=== PATIENT | male | born 1990 | race African-American/Black ===

== ENCOUNTER 2016-12-18 16:37 | Emergency (ER) | payer SELFPAY ==
[~2016-12-18] VITALS: Ht 175.3 cm; Wt 85.7 kg
[2016-12-18 16:42] VITALS: BP 111/68
[2016-12-18] MEDS ORDERED: Fluorescein Strips RIGHT EYE ONE (17:00)
[2016-12-18] MEDS ORDERED: Proparacaine 0.5% Opth Soln 15ml RIGHT EYE ONE (17:00)
[2016-12-18] MEDS ORDERED: Morgan Lens TOPIC ONE (17:45)
[2016-12-18] MEDS ORDERED: NS Irrig 1000ml 1,000 ML IRRIG ONE (17:45)
[2016-12-18] MEDS ORDERED: ERYTHROMYCIN3.5 GM RIGHT EYE (18:27)
[2016-12-18] MEDS ORDERED: IBUPROFEN600 MG ORAL (18:27)
[2016-12-18 19:45] VITALS: BP 155/75
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
== END 2016-12-18 19:45 | disposition home or self-care (01) ==
LOC: EMR 17:10
DX: S00.211A Abrasion of right eyelid and periocular area, initial encounter (principal); V43.52XA Car driver injured in collision with other type car in traffic accident, initial encounter; Y93.9 Activity, unspecified; Y92.410 Unspecified street and highway as the place of occurrence of the external cause
CPT/HCPCS: 96374

== ENCOUNTER 2016-12-20 18:00 | Emergency (ER) | payer SELFPAY ==
[~2016-12-20] VITALS: Ht 175.3 cm; Wt 85.7 kg
[~2016-12-20 18:00] MED LIST: ERYTHROMYCIN3.5 GM RIGHT EYE; IBUPROFEN600 MG ORAL
[2016-12-20] MEDS ORDERED: Proparacaine 0.5% Opth Soln 15ml BOTH EYES ONE (18:45)
[2016-12-20] MEDS ORDERED: traMADol 50mg tab ORAL ONE (18:45)
[2016-12-20 18:55] VITALS: BP 113/60
[2016-12-20] MEDS ORDERED: Tetracaine 0.5% Opth Soln RIGHT EYE ONE (19:00)
[2016-12-20] MEDS ORDERED: TRAMADOL HCL50 MG ORAL (19:11)
[2016-12-20 19:26] VITALS: BP 113/60
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
== END 2016-12-20 19:28 | disposition home or self-care (01) ==
LOC: EMR 18:31
DX: S00.11XA Contusion of right eyelid and periocular area, initial encounter (principal); V49.9XXA Car occupant (driver) (passenger) injured in unspecified traffic accident, initial encounter; Y93.9 Activity, unspecified; Y99.9 Unspecified external cause status; V89.2XXD Person injured in unspecified motor-vehicle accident, traffic, subsequent encounter; H57.11 Ocular pain, right eye
CPT/HCPCS: 99283

== ENCOUNTER 2016-12-25 02:46 | Emergency (ER) | payer SELFPAY ==
[~2016-12-25] VITALS: Ht 175.3 cm; Wt 85.7 kg
[~2016-12-25 02:46] MED LIST changes: +TRAMADOL HCL50 MG ORAL
[2016-12-25 03:11] VITALS: BP 125/58
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
[2016-12-25] MEDS ORDERED: Tetracaine 0.5% Opth Soln RIGHT EYE ONE (03:30)
[2016-12-25] MEDS ORDERED: Oxycodone/Acetaminophen 5-325 ORAL ONE (03:30)
[2016-12-25] MEDS ORDERED: TRAMADOL HCL50 MG ORAL (03:34)
[2016-12-25] MEDS ORDERED: CYCLOGYL 1% OP S2 ML OP (03:34)
[2016-12-25 04:02] VITALS: BP 125/58
--- NOTE | 2016-12-25 09:46 | Diagnostic Imaging Report ---
Indications: PAIN Technique: Spiral images obtained through the orbits. No IV contrast utilized. Multiplanar reconstructions were generated.Total dose length product 451 mGycm. CTDIvol(s) 28mGy. Dose reduction achieved using automated exposure control Comparison: None Findings: No evidence of acute fracture. The retroseptal orbits and optic globes are intact. The sinuses are except for a small right maxillary mucous retention cyst. The visualized intracranial structures are unremarkable. Impression: No acute bony trauma Sinus disease This agrees with the preliminary interpretation provided overnight by [facility] teleradiology service. The CT scanner at [facility] is accredited by the [employer] and the scans are performed using protocols designed to limit radiation exposure to as low as reasonably achievable to attain images of sufficient resolution adequate for diagnostic evaluation.
== END 2016-12-25 04:08 | disposition home or self-care (01) ==
LOC: EMR 03:00
DX: H20.9 Unspecified iridocyclitis (principal)
CPT/HCPCS: 70480; 99284

== ENCOUNTER 2017-02-01 14:10 | Emergency (ER) | payer SELFPAY ==
[~2017-02-01] VITALS: Ht 175.3 cm; Wt 87.1 kg
[~2017-02-01 14:10] MED LIST changes: +CYCLOGYL 1% OP S2 ML OP
[2017-02-01 14:45] VITALS: BP 139/68
[2017-02-01] MEDS ORDERED: Fluorescein Strips LEFT EYE ONE (14:45)
[2017-02-01] MEDS ORDERED: Norco 5mg/325mg tab ORAL ONE (14:45)
[2017-02-01] MEDS ORDERED: Tetracaine 0.5% Opth Soln LEFT EYE ONE (14:45)
[2017-02-01] MEDS ORDERED: Bacitracin Oint UD TOPIC ONE ×2 (15:35→16:00)
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
[2017-02-01] MEDS ORDERED: OCUFLOX5 ML OP (16:03)
[2017-02-01] MEDS ORDERED: BACITRACIN-P28.35 GM TP (16:03)
[2017-02-01] MEDS ORDERED: IBUPROFEN600 MG ORAL (16:03)
[2017-02-01] MEDS ORDERED: CYCLOBENZAPRINE10 MG ORAL (16:03)
[2017-02-01] MEDS ORDERED: Tetanus/Diptheria/Pertussis Vaccine 0.5ml Syr IM ONE (16:15)
[2017-02-01 16:26] VITALS: BP 124/68
--- NOTE | 2017-02-02 09:07 | Diagnostic Imaging Report ---
Indication: PAIN Technique: XRAY WRIST MIN 3V RIGHT Comparison: None. Findings: The osseous structures are intact. There is no fracture or destruction. The visualized joints are normal. The soft tissues are unremarkable. Impression: Normal.
--- NOTE | 2017-02-02 09:07 | Diagnostic Imaging Report ---
Indication: PAIN Technique: XRAY ANKLE MIN 3VWS RIGHT Comparison: None. Findings: The ankle mortise is intact. There is no fracture. No evidence of bone destruction. There is a screw in the midfoot. Impression: Screw in the midfoot. Normal ankle.
--- NOTE | 2017-02-03 09:15 | Diagnostic Imaging Report ---
Indication: PAIN Technique: XRAY HAND MIN 3V RIGHT Comparison: None. Findings: The osseous structures are intact. There is no fracture or destruction. The visualized joints are normal. The soft tissues are unremarkable. Impression: Normal.
== END 2017-02-01 16:26 | disposition home or self-care (01) ==
LOC: EMR 14:42
DX: S05.02XA Injury of conjunctiva and corneal abrasion without foreign body, left eye, initial encounter (principal); S60.512A Abrasion of left hand, initial encounter; S00.212A Abrasion of left eyelid and periocular area, initial encounter; S61.512A Laceration without foreign body of left wrist, initial encounter; V43.52XA Car driver injured in collision with other type car in traffic accident, initial encounter; Y92.410 Unspecified street and highway as the place of occurrence of the external cause; Z23 Encounter for immunization
CPT/HCPCS: 90471; 90715; 96372; 99284